=== PATIENT | female | born 1975 | race Caucasian/White ===

== ENCOUNTER 2018-08-19 20:19 | Emergency (ER) | payer MEDICAID, SELFPAY ==
[2018-08-19 20:25] VITALS: BP 124/70; PULSE 68; RESP 20; TEMP 36.8; O2SAT 100
--- NOTE | 2018-08-19 20:33 | W.ED.GENAD ---
Discharge Plan Disposition Patient Disposition: HOME Condition: Fair Discharge Details Chief Complaint: RashLesion Clinical Impression: Cellulitis of finger of right hand Primary Care Provider: Mariya Calderón ED Provider: Ember Mackenzie Home Meds and New Rx's Prescriptions: New sulfamethoxazole-trimethoprim [Bactrim DS] 800-160 mg tablet 1 tab PO BID Qty: 12 RF: 0 Continue acetaminophen [Acetaminophen Extra Strength] 500 MG tablet 1,000 mg PO Q6H PRN RF: 0 albuterol sulfate [Ventolin HFA] 8 GM HFA aerosol inhaler 2 puff Inhalation BID PRNQty: 1 RF: 1 fluticasone [Flovent HFA] 12 GM HFA aerosol inhaler 2 puff Inhalation BID Qty: 1 RF: 4 ranitidine HCl [Zantac Maximum Strength] 150 MG tablet 150 mg PO BID PRNQty: 60 RF: 0 betamethasone, augmented 50 GM cream 1 zachary Topical DAILY PRNQty: 50 RF: 1 amitriptyline 25 MG tablet 25 mg PO HS Qty: 90 RF: 3 fexofenadine [Sravanthi Allergy] 180 MG tablet 180 mg PO DAILY PRN0 Days Qty: 30 RF: 1 pregabalin [Lyrica] 25 MG capsule 25 mg PO BID PRNRF: 0 cfpyhqk-bnamvwspckaop-pgfwrbim [Excedrin Migraine] 1 EACH tablet 2 tab PO PRN PRNRF: 0 acetaminophen 650 MG tablet extended release 650 mg PO Q8H PRN (Reason: Pain) Qty: 20 RF: 0 Discharge Instructions Instructions: Cellulitis (ED) Additional Instructions: Keep open wound clean, dry, covered. Please take antibiotics as prescribed. Even if symptoms improve, please take the entire course. Please follow-up with primary care in the next 5-7 days for reevaluation. If you develop fever/chills, spreading of the redness, inability to move your finger or other new/worsening symptoms please seek care urgently once again Referrals: Mariya Calderón, [employer] [Primary Care Provider] - Medical Decision Making Patient is a 43-year-old hldwe-emdv-fpgrygdk female presenting today with chief concern of wound to the dorsal aspect of the proximal phalanx of the middle digit right hand with streaking with approximately. She reports that she suffered a wound last night. States that initially began as a water blister. 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 However, it was today that she noted the surrounding erythema in the streaking moving proximally. She denies any fevers or chills. Is indicating area of discomfort consistent with where the erythema is. She is got good range of motion of her digits, wrist and elbow. She is afebrile, has been afebrile. Appears nontoxic. Vital signs are within normal limits. At this point, patient will be treated with the Bactrim. I have asked nursing staff to dress the wound. We discussed wound care in depth. Advised that she will need follow-up for reevaluation within the next 5-7 days by primary care. She was given strict return precautions. The digit is only affected on the dorsum of the hand, no circumferential erythema or swelling. Sensation is intact as is extension against resistance with good strength. All of her questions and concerns were addressed and she is in agreement with this plan HPI General Mode of arrival: ambulatory. Date/Time Provider Initiated Documentation: 08/19/18 20:32. Limitations to Documentation: no limitations. Information obtained by: patient. History of Present Illness 43 year old F presents to the emergency department with the chief complaint of erythema right middle finger, described as moderate, with intensity rated at 9. Quality is described as stabbing, and is localized to the right and upper extremity. Patient proximal (to the right wrist along dorsal aspect). Patient started experiencing this day(s) (1) and it has been constant. No relieving factors improve symptom(s), No exacerbating factors reported . Patient notes rash; denies chest pain, cough, fever/chills and shortness of breath. Patient did receive the following treatments prior to arrival, none Related Data Home Medications Medication Instructions Recorded Confirmed acetaminophen [Acetaminophen Extra 1,000 mg PO Q6H PRN tab-cap 04/04/15 08/19/18 Strength] pregabalin [Lyrica] 25 mg PO BID PRN 05/07/15 08/19/18 albuterol sulfate [Ventolin HFA] 2 puff INHALATION BID PRN #1 07/03/15 08/19/18 inhaler fluticasone [Flovent HFA] 2 puff INHALATION BID #1 inhaler 07/03/15 08/19/18 whnhprr-fvsinwjbenrnq-rpermbge 2 tab PO PRN PRN 01/30/16 08/19/18 [Excedrin Migraine] ranitidine HCl [Zantac Maximum 150 mg PO BID PRN #60 tab 08/19/16 08/19/18 Strength] acetaminophen 650 mg PO Q8H PRN #20 tablet.er 03/17/17 08/19/18 betamethasone, augmented 1 zachary TOPICAL DAILY PRN #50 g 04/07/17 08/19/18 amitriptyline 25 mg PO HS #90 tab-cap 04/14/17 08/19/18 fexofenadine [Sravanthi Allergy] 180 mg PO DAILY PRN 0 Days #30 05/26/17 08/19/18 tab-cap sulfamethoxazole-trimethoprim 1 tab PO BID #12 tab 08/19/18 [Bactrim DS] Previous Rx's Medication Instructions Recorded acetaminophen 650 mg PO Q8H PRN #20 tablet.er 03/17/17 sulfamethoxazole-trimethoprim 1 tab PO BID #12 tab 08/19/18 [Bactrim DS] Allergies Allergy/AdvReac Type Severity Reaction Status Date / Time naproxen Allergy Severe anaphylaxis Unverified 08/19/18 20:30 latex Allergy itchy, Unverified 08/19/18 20:30 swells neomycin [Neomycin] Allergy allergy Unverified 08/19/18 20:30 testing codeine phosphate AdvReac Mild Nausea and Unverified 08/19/18 20:30 [From Tylenol-Codeine #3] headache gabapentin AdvReac Unverified 08/19/18 20:30 ibuprofen AdvReac GI Unverified 08/19/18 20:30 General Stated Complaint: RashLesion ALYSHA: 4 Review of Systems Constitutional Reports as per HPI Cardiovascular Reports as per HPI Respiratory Reports as per HPI Musculoskeletal Reports as per HPI, Reports joint swelling (to the right middle finger, proximal phalanx), Denies numbness and Denies tingling Integumentary/Breasts Reports as per HPI, Reports erythema and Reports wounds Neurologic Reports as per HPI, Denies numbness and Denies tingling PFSH Family History Mother Rheumatoid aortitis Mental disorder Father Heart disease Mental disorder Sister Mental disorder Primary fibromyalgia syndrome Asthma Maternal Grandmother Personal history of malignant neoplasm Sister Diabetes Brother Heart disease Medical History Cervical cancer, 19[address] Dr[address] Avila D&C, 12/2007 (miscarriage) Ectopic Preg, 04/2001 Endometriosis Social History Smoking/Tobacco Use Status: Current every day Surgical History section Colonoscopy - MAC Endoscopy , Ectopic Tonsillectomy (05/03/13) Tubal Ligation, Laparoscopic flexible laryngoscopy Exam Const General: cooperative, healthy appearing, comfortable, no acute distress, well developed and well groomed Nutritional Appearance: average body habitus and well nourished Orientation: alert and awake Resp Effort & Inspection: normal respiratory effort, able to speak in complete sentences and no respiratory distress Auscultation: clear to auscultation bilaterally, no rales, no rhonchi and no wheezes Cardio Rate: regular rate Rhythm: regular rhythm Heart Sounds: S1 normal and S2 normal Skin Wounds: wounds noted (patient has a circular 5mm area consistent with blister to the dorsal aspect of the proximal phalanx of the middle finger right hand. Serosanguineous fluid is weeping from this area. Appears to be open wound. No purulent discharge. 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 equal to the contralateral side) Sensory Exam: no sensory deficits noted Extrem Right upper extremity: full ROM, normal capillary refill and no joint enlargement (patient has some mild swelling around the proximal phalanx); abnormal to inspection (as above) and no cyanosis Psych Appearance: grossly normal and well kempt Mental Status: mental status grossly normal Speech and Movement: speech and movement normal Course Vital Signs Temperature 36.8 C 08/19/18 20:25 Pulse 68 08/19/18 20:25 Respiratory Rate 20 08/19/18 20:25 Blood Pressure 124/70 08/19/18 20:25 Pulse Oximetry 100 08/19/18 20:25 Temperature 36.8 C 08/19/18 20:25 Temperature Source Temporal Artery Scan 08/19/18 20:25 Pulse 68 08/19/18 20:25 Respiratory Rate 20 08/19/18 20:25 Respiratory Effort Non-Labored 08/19/18 20:25 Blood Pressure 124/70 08/19/18 20:25 Blood Pressure Position Supine 08/19/18 20:25 Pulse Oximetry 100 08/19/18 20:25 Oxygen Delivery Method Room Air 08/19/18 20:25 Oxygen Flow Rate 0 08/19/18 20:25 Pain Level 9 08/19/18 20:25
[2018-08-19] MEDS: Sulfameth/Trimeth DS TAB 1 TAB PO ×2 (21:10)
--- NOTE | 2018-08-19 22:03 | ED.GENADUL_ITS ---
Discharge Plan Disposition Patient Disposition: HOME Condition: Fair Discharge Details Chief Complaint: RashLesion Clinical Impression: Cellulitis of finger of right hand Primary Care Provider: Mariya Calderón ED Provider: Ember Mackenzie Home Meds and New Rx's Prescriptions: New sulfamethoxazole-trimethoprim [Bactrim DS] 800-160 mg tablet 1 tab PO BID Qty: 12 RF: 0 Continue acetaminophen [Acetaminophen Extra Strength] 500 MG tablet 1,000 mg PO Q6H PRN RF: 0 albuterol sulfate [Ventolin HFA] 8 GM HFA aerosol inhaler 2 puff Inhalation BID PRNQty: 1 RF: 1 fluticasone [Flovent HFA] 12 GM HFA aerosol inhaler 2 puff Inhalation BID Qty: 1 RF: 4 ranitidine HCl [Zantac Maximum Strength] 150 MG tablet 150 mg PO BID PRNQty: 60 RF: 0 betamethasone, augmented 50 GM cream 1 zachary Topical DAILY PRNQty: 50 RF: 1 amitriptyline 25 MG tablet 25 mg PO HS Qty: 90 RF: 3 fexofenadine [Sravanthi Allergy] 180 MG tablet 180 mg PO DAILY PRN0 Days Qty: 30 RF: 1 pregabalin [Lyrica] 25 MG capsule 25 mg PO BID PRNRF: 0 atgwxjo-vmkhoxilmwbit-ahygxcet [Excedrin Migraine] 1 EACH tablet 2 tab PO PRN PRNRF: 0 acetaminophen 650 MG tablet extended release 650 mg PO Q8H PRN (Reason: Pain) Qty: 20 RF: 0 Discharge Instructions Instructions: Cellulitis (ED) Additional Instructions: Keep open wound clean, dry, covered. Please take antibiotics as prescribed. Even if symptoms improve, please take the entire course. Please follow-up with primary care in the next 5-7 days for reevaluation. If you develop fever/chills , spreading of the redness, inability to move your finger or other new/ worsening symptoms please seek care urgently once again Referrals: Mariya Calderón, [employer] [Primary Care Provider] - Medical Decision Making Patient is a 43-year-old klihz-lyhq-mgmaoitx female presenting today with chief concern of wound to the dorsal aspect of the proximal phalanx of the middle digit right hand with streaking with approximately. She reports that she suffered a wound last night. States that initially began as a water blister. 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 However, it was today that she noted the surrounding erythema in the streaking moving proximally. She denies any fevers or chills. Is indicating area of discomfort consistent with where the erythema is. She is got good range of motion of her digits, wrist and elbow. She is afebrile, has been afebrile. Appears nontoxic. Vital signs are within normal limits. At this point, patient will be treated with the Bactrim. I have asked nursing staff to dress the wound. We discussed wound care in depth. Advised that she will need follow-up for reevaluation within the next 5-7 days by primary care. She was given strict return precautions. The digit is only affected on the dorsum of the hand, no circumferential erythema or swelling. Sensation is intact as is extension against resistance with good strength. All of her questions and concerns were addressed and she is in agreement with this plan HPI General Mode of arrival: ambulatory . Date/Time Provider Initiated Documentation: 08/19/18 20:32 . Limitations to Documentation: no limitations . Information obtained by: patient . History of Present Illness 43 year old F presents to the emergency department with the chief complaint of erythema right middle finger, described as moderate, with intensity rated at 9. Quality is described as stabbing, and is localized to the right and upper extremity. Patient proximal (to the right wrist along dorsal aspect). Patient started experiencing this day(s) (1) and it has been constant. No relieving factors improve symptom(s), No exacerbating factors reported . Patient notes rash; denies chest pain, cough, fever/chills and shortness of breath. Patient did receive the following treatments prior to arrival, none Related Data Home Medications Medication Instructions Recorded Confirmed acetaminophen [Acetaminophen Extra 1,000 mg PO Q6H PRN tab-cap 04/04/15 Strength] pregabalin [Lyrica] 25 mg PO BID PRN 05/07/15 08/19/18 albuterol sulfate [Ventolin HFA] 2 puff INHALATION BID PRN #1 07/03/15 08/19/18 inhaler fluticasone [Flovent HFA] 2 puff INHALATION BID #1 inhaler 07/03/15 08/19/18 ihyxbml-bgbougqwiyohj-atbqcjqk 2 tab PO PRN PRN 01/30/16 08/19/18 [Excedrin Migraine] ranitidine HCl [Zantac Maximum 150 mg PO BID PRN #60 tab 08/19/16 08/19/18 Strength] acetaminophen 650 mg PO Q8H PRN #20 tablet.er 03/17/17 08/19/18 betamethasone, augmented 1 zachary TOPICAL DAILY PRN #50 g 04/07/17 08/19/18 amitriptyline 25 mg PO HS #90 tab-cap 04/14/17 08/19/18 fexofenadine [Sravanthi Allergy] 180 mg PO DAILY PRN 0 Days #30 05/26/17 08/19/18 tab-cap sulfamethoxazole-trimethoprim 1 tab PO BID #12 tab 08/19/18 [Bactrim DS] Previous Rx's Medication Instructions Recorded acetaminophen 650 mg PO Q8H PRN #20 tablet.er 03/17/17 sulfamethoxazole-trimethoprim 1 tab PO BID #12 tab 08/19/18 [Bactrim DS] Allergies Allergy/AdvReac Type Severity Reaction Status Date / Time naproxen Allergy Severe anaphylaxis Unverified 08/19/18 20:30 latex Allergy itchy, Unverified 08/19/18 20:30 swells neomycin [Neomycin] Allergy allergy Unverified 08/19/18 20:30 testing codeine phosphate AdvReac Mild Nausea and Unverified 08/19/18 20:30 [From Tylenol-Codeine #3] headache gabapentin AdvReac Unverified 08/19/18 20:30 ibuprofen AdvReac GI Unverified 08/19/18 20:30 General Stated Complaint: RashLesion ALYSHA: 4 Review of Systems Constitutional Reports as per HPI Cardiovascular Reports as per HPI Respiratory Reports as per HPI Musculoskeletal Reports as per HPI, Reports joint swelling (to the right middle finger, proximal phalanx), Denies numbness and Denies tingling Integumentary/Breasts Reports as per HPI, Reports erythema and Reports wounds Neurologic Reports as per HPI, Denies numbness and Denies tingling PFSH Family History Mother Rheumatoid aortitis Mental disorder Father Heart disease Mental disorder Sister Mental disorder Primary fibromyalgia syndrome Asthma Maternal Grandmother Personal history of malignant neoplasm Sister Diabetes Brother Heart disease Medical History Cervical cancer, 19yo Dr[address] Avila D&C, 12/2007 (miscarriage) Ectopic Preg, 04/2001 Endometriosis Social History Smoking/Tobacco Use Status: Current every day Surgical History section Colonoscopy - MAC Endoscopy , Ectopic Tonsillectomy (05/03/13) Tubal Ligation, Laparoscopic flexible laryngoscopy Exam Const General: cooperative, healthy appearing, comfortable, no acute distress, well developed and well groomed Nutritional Appearance: average body habitus and well nourished Orientation: alert and awake Resp Effort & Inspection: normal respiratory effort, able to speak in complete sentences and no respiratory distress Auscultation: clear to auscultation bilaterally, no rales, no rhonchi and no wheezes Cardio Rate: regular rate Rhythm: regular rhythm Heart Sounds: S1 normal and S2 normal Skin Wounds: wounds noted (patient has a circular 5mm area consistent with blister to the dorsal aspect of the proximal phalanx of the middle finger right hand. Serosanguineous fluid is weeping from this area. Appears to be open wound. No purulent discharge. Patient has a 2 cm in thickness streak in moving proximally from) Neuro General: alert and awake Cognition: normal cognition Speech: speech normal Gait: normal gait Motor: muscle tone normal throughout (safe expert strength equal to the contralateral side) Sensory Exam: no sensory deficits noted Extrem Right upper extremity: full ROM, normal capillary refill and no joint enlargement (patient has some mild swelling around the proximal phalanx); abnormal to inspection (as above) and no cyanosis Psych Appearance: grossly normal and well kempt Mental Status: mental status grossly normal Speech and Movement: speech and movement normal Course Vital Signs Temperature 36.8 C 08/19/18 20:25 Pulse 68 08/19/18 20:25 Respiratory Rate 20 08/19/18 20:25 Blood Pressure 124/70 08/19/18 20:25 Pulse Oximetry 100 08/19/18 20:25 Temperature 36.8 C 08/19/18 20:25 Temperature Source Temporal Artery Scan 08/19/18 20:25 Pulse 68 08/19/18 20:25 Respiratory Rate 20 08/19/18 20:25 Respiratory Effort Non-Labored 08/19/18 20:25 Blood Pressure 124/70 08/19/18 20:25 Blood Pressure Position Supine 08/19/18 20:25 Pulse Oximetry 100 08/19/18 20:25 Oxygen Delivery Method Room Air 08/19/18 20:25 Oxygen Flow Rate 0 08/19/18 20:25 Pain Level 9 08/19/18 20:25
[2018-08-20 05:43] VITALS: BP 124/70; PULSE 68; RESP 20; TEMP 36.8; O2SAT 100
== END 2018-08-19 21:16 | disposition home or self-care (01) ==
LOC: ER 21:44
PROVIDERS: Emergency Provider Physician Assistant; PCP Nurse Practitioner
DX: L03.011 Cellulitis of right finger (principal); L03.021 Acute lymphangitis of right finger; S60.422A Blister (nonthermal) of right middle finger, initial encounter; X58.XXXA Exposure to other specified factors, initial encounter
CPT/HCPCS: 99283

== ENCOUNTER 2018-08-20 13:42 | Outpatient (REF) | payer MEDICAID, SELFPAY | END 2018-08-20 14:02 | LOC: LBN 13:42 | PROVIDERS: PCP Nurse Practitioner; Visit Provider Nurse Practitioner | DX: L02.511 Cutaneous abscess of right hand (principal) | CPT/HCPCS: 87077; 87070 ==

== ENCOUNTER 2018-10-12 14:49 | Outpatient (REF) | payer MEDICAID, SELFPAY | END 2018-10-12 15:09 | LOC: LBN 14:49 | PROVIDERS: PCP Nurse Practitioner; Visit Provider Nurse Practitioner Adult Health | DX: J02.9 Acute pharyngitis, unspecified (principal) | CPT/HCPCS: 87077; 87070 ==

== ENCOUNTER 2018-11-09 09:50 | Outpatient (CLI) | payer MEDICAID, SELFPAY ==
--- NOTE | 2018-11-09 09:45 | DI.RAD_ITS ---
SYMPTOM/DIAGNOSIS: CHRONIC COUGH, R05 PA AND LATERAL CHEST: Comparison is made with 30 January 2016. The heart size is normal. The lungs are well inflated and clear. No infiltrate or effusion seen. IMPRESSION: Negative chest x-ray
[2018-11-09 10:11] LABS: Abs Immature Grans 0.02 k/cumm (0.0-0.09); Absolute Basophil Count 0.08 k/cumm (0.0-0.2); Absolute Eosinophil Count 0.35 k/cumm (0.0-0.7); Absolute Neutrophil Count 5.63 k/cumm (1.2-6.7); Basophils % 0.7; Eosinophils % 3.3; HCT 43.5 % (36.0-46.0); HGB 13.8 g/dL (12.0-15.5); Immature Grans % 0.2; Lymphocytes % 37.5; Mean Corp. HGB Concentration 31.7 g/dL (32.0-36.0); Mean Corpuscular Hemoglobin 29.6 pg (27.0-33.0); Mean Corpuscular Volume 93.1 fL (80-95); Monocytes % 5.6; Neutrophils % 52.7; Platelet Count 327 x1000/uL (130-400); RBC 4.67 m/cumm (4.00-5.20); RBC Distribution Width 15.3 % (11.7-14.6); White Blood Cell Count 10.68 k/cumm (4.4-10.8)
[2018-11-09 10:25] LABS: Mono Screening Negative (Negative)
[2018-11-09 13:16] LABS: ALT 18 U/L (12-78); AST 14 U/L (15-37); Albumin 3.3 g/dL (3.4-5.0); Alkaline Phosphatase 101 U/L (46-116); Anion Gap 9.8 mmol/L (3-11); BUN 17 mg/dL (7-18); Bilirubin, Total 0.2 mg/dL (0.2-1.0); CO2 26.2 mmol/L (21.0-32.0); CREATININE 0.92 mg/dL (0.55-1.02); Calcium 8.6 mg/dL (8.5-10.1); Chloride 105 mmol/L (98-107); Glucose 125 mg/dL (70-100); Potassium 4.2 mmol/L (3.5-5.1); Sodium 141 mmol/L (136-145); Total Protein 7.3 g/dL (6.4-8.2)
== END 2018-11-09 10:10 ==
PROVIDERS: PCP Nurse Practitioner; Visit Provider Nurse Practitioner Adult Health
DX: R05 Cough (principal); R53.83 Other fatigue; F17.200 Nicotine dependence, unspecified, uncomplicated; J45.901 Unspecified asthma with (acute) exacerbation
CPT/HCPCS: 36415; 80053; 71046; 85025; 86308

== ENCOUNTER 2019-11-02 17:17 | Outpatient (REF) | payer MEDICAID, SELFPAY ==
--- NOTE | 2019-11-02 15:45 | PAPFT_PTH ---
PATIENT: Carmen Ngo LOC: [facility] U#:[id number] AGE/SX: 44/F ROOM: RE11/02/[address]: Armaan Gonzales MD : 1975 BED: DIS: 11/02/2019 SPEC #: [id number] RECD: 11/02/19 18:04 STATUS: ESTEFANIA REArnoldo #: [id number] MARIANELA: 11/02/19 15:[address]: Armaan Gonzales DEPT: [facility] Cytology RECD BY: Kayla Varela ENTERED: 11/02/19 18:04 SP TYPE: PAPFT OTHR DR: Adriana Wylie APRN Tissues: 1 - CX/ENDOCX FOR PAP SMEARS Procedures: PAP THIN PREP/UVM Screening HPV DNA PROBE Comments: [id number]
== END 2019-11-02 17:37 ==
LOC: LBN 17:17
PROVIDERS: PCP Nurse Practitioner Adult Health; Visit Provider Obstetrics & Gynecology
DX: Z12.4 Encounter for screening for malignant neoplasm of cervix (principal); Z11.51 Encounter for screening for human papillomavirus (HPV)
CPT/HCPCS: 88142; 87624

== ENCOUNTER 2019-11-05 01:32 | Outpatient (CLI) | payer MEDICAID, SELFPAY ==
--- NOTE | 2019-11-05 12:34 | DI.US_ITS ---
EXAM: US PELVIS TRANSVAGINAL CLINICAL HISTORY: dysmenorrhea N94.6 TECHNIQUE: Ultrasound performed using standard protocol. COMPARISON: ABDOMEN ULTRASOUND (P) from 02/02/2016 FINDINGS: Pelvic ultrasound was performed transabdominally and transvaginally. Please see the accompanying israel a sheet for measurements of the pelvic structures. There are few small nabothian cysts noted. The o varies have a normal follicular appearance. No free fluid identified in the cul-de-sac. Endometrial stripe is about 8 millimeters thick and homogeneous. Myometrium is unremarkable. Limited scanning of the kidneys is unremarkable IMPRESSION: Negative pelvic ultrasound
== END 2019-11-05 01:52 ==
PROVIDERS: PCP Nurse Practitioner Adult Health; Visit Provider Obstetrics & Gynecology
DX: N94.6 Dysmenorrhea, unspecified (principal)
CPT/HCPCS: 76830; 76856

== ENCOUNTER 2023-02-17 09:12 | Outpatient (REF) | payer MEDICAID, SELFPAY ==
--- NOTE | 2023-02-17 08:53 | SKI_PTH ---
PATIENT: Carmen Ngo LOC: [facility] U#:[id number] AGE/SX: 47/F ROOM: RE02/17/[address]: Betty Lauren MD : 1975 BED: DIS: 02/17/2023 SPEC #: [id number] RECD: 02/17/23 13:01 STATUS: ESTEFANIA REArnoldo #: [id number] MARIANELA: 02/17/23 08:[address]: Betty Lauren DEPT: Surgical Specimen RECD BY: Kayla Varela ENTERED: 02/17/23 13:02 SP TYPE: AUDELIA PETERSEN DR: Adriana Wylie APRN Tissues: 1 - SKIN BIOPSY(SHAVE/PUNCH) 2 - SKIN BIOPSY(SHAVE/PUNCH) Procedures: SKIN LEVEL 4 Comments: [id number]
== END 2023-02-17 09:13 | disposition home or self-care (01) ==
LOC: LBN 09:12
PROVIDERS: PCP Nurse Practitioner Adult Health; Visit Provider Surgery
DX: L30.8 Other specified dermatitis (principal); R23.8 Other skin changes
CPT/HCPCS: 88305

== ENCOUNTER 2023-03-04 03:55 | Outpatient (CLI) | payer MEDICAID, SELFPAY ==
[2023-03-04 12:21] LABS: Abs Immature Grans 0.03 10^3/uL (0.0-0.06); Absolute Basophil Count 0.08 10^3/uL (0.0-0.2); Absolute Eosinophil Count 0.38 10^3/uL (0.0-0.7); Absolute Lymphocyte Count 2.63 10^3/uL (1.2-3.4); Absolute Monocyte Count 0.54 10^3/uL (0.1-0.8); Basophils % 0.9; Eosinophils % 4.1; HCT 45.3 % (36.0-46.0); HGB 14.2 g/dL (11.2-15.7); Immature Grans % 0.3; Lymphocytes % 28.1; MCHC 31.3 % (32.0-36.0); MCV 92 fL (80-95); MPV 9.2 fL (8.0-11.0); Monocytes % 5.8; Neutrophils % 60.8; Platelet Count 345 10^3/uL (130-400); RDW 15.9 % (11.7-14.6); RDW-SD 53.9 fL; WBC 9.36 10^3/uL (4.4-10.8)
[2023-03-04 12:23] LABS: ESR 32 mm/hr (0-20)
[2023-03-04 12:45] LABS: ALT 24 U/L (14-59); AST 16 U/L (15-37); Albumin 3.3 g/dL (3.4-5.0); Alkaline Phosphatase 82 U/L (46-116); Anion Gap 8.8 mmol/L (3-11); BUN 12 mg/dL (7-18); Bilirubin, Total 0.7 mg/dL (0.2-1.0); CO2 26.2 mmol/L (21.0-32.0); CREATININE 0.9 mg/dL (0.55-1.02); Calcium 8.5 mg/dL (8.5-10.1); Calculated LDL 89 mg/dL (<100); Chloride 104 mmol/L (98-107); Cholesterol 185 mg/dL (<200); Estimated GFR 80.34 (mL/min/1.73m2); Glucose 129 mg/dL (74-106); HDL Cholesterol 35 mg/dL (40-60); Potassium 3.8 mmol/L (3.5-5.1); Sodium 139 mmol/L (136-145); TSH (W/Ref FT4) 1.68 uIU/mL (0.36-3.74); Total Protein 7.3 g/dL (6.4-8.2); Triglyceride 309 mg/dL (<150)
[2023-03-04 22:22] LABS: Rheumatoid Factor <8.6 IU/mL (<12.0)
[2023-03-06 13:21] LABS: Lab Add On Test DONE
[2023-03-06 13:34] LABS: Hemoglobin A1C 6.3 % (<5.7)
== END 2023-03-04 03:56 | disposition home or self-care (01) ==
LOC: LOS 03:55
PROVIDERS: PCP Nurse Practitioner Adult Health; Visit Provider Nurse Practitioner Adult Health
DX: L30.8 Other specified dermatitis (principal); Z13.1 Encounter for screening for diabetes mellitus; Z13.220 Encounter for screening for lipoid disorders; Z83.2 Family history of diseases of the blood and blood-forming organs and certain disorders involving the immune mechanism; R73.01 Impaired fasting glucose
CPT/HCPCS: 36415; 80053; 80061; 85652; 83036; 84443; 85025; 86431

== ENCOUNTER → 2024-04-01 00:59 | Outpatient (CLI) | payer MEDICAID, SELFPAY ==
--- NOTE | 2024-04-01 08:00 | DI.RAD_ITS ---
Exam(s) XR LUMBAR SPINE COMPLETE EXAM: XR LUMBAR SPINE COMPLETE CLINICAL HISTORY: back pain; ?acute abnormality,M54.50. TECHNIQUE: 2D digital imaging was performed of the lumbar spine. Five images were obtained. AP, la teral, right oblique, left oblique and L5-S1 spot views were obtained. COMPARISON: CR THORACIC SPINE from 12/08/2013 FINDINGS: BONES: No fracture or destructive lesion. Small endplate osteophytes are seen at L3-4 and L4-L5. Mild degenerative changes are seen at the facets at L5-S1. DISKS: Intervertebral disc spaces are maintained. ALIGNMENT: Lumbar spinal alignment is within normal limits. No spondylolysis or spondylolisthesis. SOFT TISSUE: Normal. IMPRESSION: 1. Mild degenerative changes seen in the lumbar spine. 2. No acute fracture or subluxation. DATA REPOSITORY: RADIATION DOSE DELIVERED:
--- NOTE | 2024-04-01 08:00 | DI.RAD_ITS ---
Exam(s) XR CERVICAL SPINE COMP 4-5V EXAM: XR CERVICAL SPINE COMP 4-5V CLINICAL HISTORY: remote 2014 injury; interval F/U; bony changes,NECK PAIN,M54.2. TECHNIQUE: 2D digital imaging was performed. Six images were obtained. AP, odontoid, lateral and zeynep ateral oblique images were obtained. COMPARISON: CR CERV SP.WITH OBL OR FLEX/EXT from 12/08/2013 FINDINGS: The odontoid is intact. The lateral masses are well aligned. There is normal alignment of the cervi jann spine. There are small endplate osteophytes seen at C5-6 and C6-C7. No acute fracture or subluxat ion is present. No significant neural foraminal stenosis is present. The cervical thoracic junction is well maintained. The prevertebral soft tissues are unremarkable. Lung apices are clear. IMPRESSION: Mild cervical spondylosis. DATA REPOSITORY: RADIATION DOSE DELIVERED:
== END ==
PROVIDERS: PCP Nurse Practitioner Adult Health; Visit Provider Nurse Practitioner Adult Health
DX: M54.2 Cervicalgia (principal); M54.50 Low back pain, unspecified
CPT/HCPCS: 72050; 72110

== ENCOUNTER → 2024-04-30 00:10 | Outpatient (CLI) | payer MEDICAID, SELFPAY ==
--- NOTE | 2024-04-30 06:30 | DI.MRI_ITS ---
Exam(s) MR LUMBAR SPINE WO EXAM: MR LUMBAR SPINE WO CLINICAL HISTORY: 10 yr f/u,lumbar radiculopathy,spinal stenosis,spondylosis. TECHNIQUE: Multiplanar multisequence MRI of the Lumbar spine was performed. COMPARISON: CR XR LUMBAR SPINE COMPLETE from 04/01/2024 FINDINGS: Bones: The last intervertebral disc space is designated the L5/S1 level for the numbering purpose of this examination. The vertebral body heights are well maintained. Alignment is satisfactory. The si gnal characteristics are unremarkable. Cord: The conus tip ends at the L1 level. It is of normal size and signal intensity. T12-L1: No disc herniations or bulges are present. No central spinal canal or neural foraminal stenos is. L1-2: No disc herniations or bulges are present. No central spinal canal or neural foraminal stenosis . L2-3: No disc herniations or bulges are present. No central spinal canal or neural foraminal stenosis . L3-4: No disc herniations or bulges are present. No central spinal canal or neural foraminal stenosis .Degenerative changes of the facets are seen. L4-5: No disc herniations or bulges are present. No central spinal canal or neural foraminal stenosis .Degenerative changes of the facets are present. L5-S1: No disc herniations or bulges are present. No central spinal canal or neural foraminal stenosi s. Soft tissues: The visualized SI joints and sacrum are well maintained. The paraspinal soft tissues ar e unremarkable. IMPRESSION: Degenerative changes seen in the lumbar spine but no evidence of focal disc herniation, central spina l canal or neural foraminal stenosis. DATA REPOSITORY:
--- NOTE | 2024-04-30 06:30 | DI.MRI_ITS ---
Exam(s) MR CERVICAL SPINE WO EXAM: MR CERVICAL SPINE WO CLINICAL HISTORY: 10 yr f/u,spondylosis,spinal stenosis,headache,pain rt arm TECHNIQUE: Multiplanar multisequence MRI of the cervical spine was performed without intravenous con trast. COMPARISON: No exams were available for comparison FINDINGS: BONES: Vertebral body heights are maintained. Intervertebral disc spaces are normal. Alignment is nor mal. Bone marrow signal intensity is within normal limits. CERVICAL CORD: Craniovertebral junction is unremarkable. The cervical cord is normal size and signal intensity. SOFT TISSUES: Unremarkable. C2-3: No disc herniation or bulge is identified. No significant central spinal canal or neural forami nal stenosis. C3-4: No disc herniation or bulge is identified. No significant central spinal canal or neural forami nal stenosis C4-5: No disc herniation or bulge is identified. No significant central spinal canal or neural forami nal stenosis C5-6: There is mild prominence of the osteophyte disc complex. No significant central spinal canal s tenosis is seen. There is mild bilateral neural foraminal narrowing. C6-7: There is mild prominence of the osteophyte disc complex. No significant central spinal canal o r neural foraminal stenosis C7-T1: No disc herniation or bulge is identified. No significant central spinal canal or neural michelle inal stenosis IMPRESSION: Degenerative changes at C5-C6 resulting in mild bilateral neural foraminal narrowing. DATA REPOSITORY:
== END ==
PROVIDERS: PCP Nurse Practitioner Adult Health; Visit Provider Nurse Practitioner Adult Health
DX: M47.812 Spondylosis without myelopathy or radiculopathy, cervical region (principal); M48.02 Spinal stenosis, cervical region; M54.16 Radiculopathy, lumbar region; R51.9 Headache, unspecified; M79.601 Pain in right arm; G89.29 Other chronic pain
CPT/HCPCS: 72141; 72148

== ENCOUNTER 2024-07-07 02:21 | Outpatient (CLI) | payer MEDICAID, SELFPAY ==
[2024-07-07 12:41] LABS: HCT 44.8 % (36.0-46.0); HGB 14.9 g/dL (11.2-15.7)
[2024-07-07 13:54] LABS: Ferritin 24 ng/mL (8-252); Folate 3.7 ng/mL (8.6-20.0); Vitamin B12 199 pg/mL (193-986)
== END 2024-07-07 02:22 | disposition home or self-care (01) ==
LOC: LBO 02:22
PROVIDERS: PCP Nurse Practitioner Adult Health; Referring Provider Nurse Practitioner Adult Health; Visit Provider Nurse Practitioner Adult Health
DX: Z83.79 Family history of other diseases of the digestive system (principal)
CPT/HCPCS: 36415; 82607; 82728; 82746; 85014; 85018

== ENCOUNTER 2024-07-08 14:47 | Outpatient (REF) | payer MEDICAID, SELFPAY | END 2024-07-08 14:48 | disposition home or self-care (01) | LOC: LBN 14:47 | PROVIDERS: PCP Nurse Practitioner Adult Health; Visit Provider Nurse Practitioner Adult Health | DX: Z83.79 Family history of other diseases of the digestive system (principal) | CPT/HCPCS: 82710 ==

== ENCOUNTER 2024-07-19 01:30 | Outpatient (CLI) | payer MEDICAID, SELFPAY ==
--- NOTE | 2024-07-19 10:33 | DI.RAD_ITS ---
Exam(s) XR HIP LT COMPLETE AP PELVIS EXAM: XR HIP LT COMPLETE AP PELVIS CLINICAL HISTORY: ? abnormality. TECHNIQUE: 2D digital imaging was performed of the left hip. Two views were obtained. AP pelvis an d lateral left hip views were obtained. COMPARISON: CR ABDOMEN 2 VIEW FLAT, UPRIGHT from 02/27/2012 FINDINGS: BONES: No acute fracture is present. No bony destructive lesion is seen. No suspicious lytic or scler otic lesions are seen. JOINTS: No dislocation present. The sacroiliac joints and symphysis pubis are unremarkable. SOFT TISSUE: Normal. IMPRESSION: The left hip joint space is well maintained. No acute abnormalities identified. DATA REPOSITORY: RADIATION DOSE DELIVERED:
== END 2024-07-19 01:50 ==
LOC: DI 01:30
PROVIDERS: PCP Nurse Practitioner Adult Health; Visit Provider Nurse Practitioner Adult Health
DX: M25.552 Pain in left hip (principal)
CPT/HCPCS: 73502

== ENCOUNTER 2024-08-23 14:08 | Outpatient (CLI) | payer MEDICAID, SELFPAY ==
--- NOTE | 2024-08-23 14:23 | DI.RAD_ITS ---
Exam(s) XR CHEST 2V PA LATERAL EXAM: XR CHEST 2V PA LATERAL CLINICAL HISTORY: ? acute process,expiratory wheezing, hemoptysis, exac of asthma,r06.2 TECHNIQUE: 2D digital imaging was performed. Two views. COMPARISON: CR XR CHEST 2V PA LATERAL from 11/09/2018 FINDINGS: HEART: Normal size. Aorta: Not dilated. PULMONARY VASCULATURE: Normal. MEDIASTINUM: Unremarkable. LUNGS: Clear. PLEURAL SPACE: No pleural effusion or pneumothorax. BONE:Unremarkable for age. SOFT TISSUES: Unremarkable. IMPRESSION: No acute abnormality. DATA REPOSITORY: RADIATION DOSE DELIVERED:
== END 2024-08-23 14:28 ==
LOC: DI 14:09
PROVIDERS: PCP Nurse Practitioner Adult Health; Visit Provider Nurse Practitioner Adult Health
DX: J45.901 Unspecified asthma with (acute) exacerbation
CPT/HCPCS: 71046

== ENCOUNTER 2024-09-10 02:09 | Outpatient (CLI) | payer MEDICAID, SELFPAY ==
[2024-09-10] MEDS: Methacholine 100 MG VIAL IH (15:02)
[2024-09-10] MEDS: Inhaler, Assist Device 1 EACH MC (15:02)
[2024-09-10] MEDS: Albuterol HFA 18 GM 200 PUFF INH IH (15:02)
--- NOTE | 2024-09-18 11:48 | W.PFT ---
Date of service: 09/10/24 Time of Service: 13:02 Pulmonary Function Test Result Indications: Asthma Interpretation Spirometry: No baseline airflow limitation. There was a 27% decrease in FEV1 with administration of 8mg/mL methacholine. Impression Borderline positive methacholine challenge. Clinical Correlation therefore is recommended.
== END 2024-09-10 02:10 | disposition home or self-care (01) ==
LOC: RT 02:09
PROVIDERS: PCP Nurse Practitioner Adult Health; Visit Provider Student in an Organized Health Care Education/Training Program
DX: J45.909 Unspecified asthma, uncomplicated (principal); Z72.0 Tobacco use
CPT/HCPCS: 94060; 94070; J7674

== ENCOUNTER 2024-10-01 00:31 | Outpatient (CLI) | payer MEDICAID, SELFPAY ==
--- NOTE | 2024-10-01 07:30 | DI.MAMMO_ITS ---
Exam(s) MAMMO SCREENING EXAM: MAMMO SCREENING CLINICAL HISTORY: screening, Z12.39 TECHNIQUE: Mammograms were interpreted according to the usual protocol including computer analysis w [employer] CAD system, tomosynthesis and C-view imaging. COMPARISON: No exams were available for comparison. Baseline examination FINDINGS: The breasts are composed of scattered fibroglandular densities, Breast Density category B. No suspicious masses or suspicious microcalcifications are seen. No skin thickening or abnormal axillary lymph nodes are seen. IMPRESSION: BI-RADS Category 1, Negative mammogram Yearly screening mammography is recommended. Breast Density - Category B, scattered fibroglandular densities. A negative radiographic report should not delay biopsy if a dominant or clinically suspicious mass is present. Up to ten percent of cancers are not identified on mammography. A negative report may reinforce clinical impression. Adenosis and dense breasts may obscure an underlying neoplasm. False positive reports average 6 to 10%. Patient will receive a letter notifying them of these results.
== END 2024-10-01 00:51 ==
LOC: DI 00:31
PROVIDERS: PCP Nurse Practitioner Adult Health; Visit Provider Nurse Practitioner Adult Health
DX: Z12.31 Encounter for screening mammogram for malignant neoplasm of breast (principal); R92.323 Mammographic fibroglandular density, bilateral breasts
CPT/HCPCS: 77063; 77067

== ENCOUNTER 2024-11-30 01:50 | Outpatient (CLI) | payer MEDICAID, SELFPAY ==
--- NOTE | 2024-11-30 13:00 | DI.MRI_ITS ---
Exam(s) MR BRAIN WO EXAM: MR BRAIN WO CLINICAL HISTORY: ?MS, diffuse paraeshesias,bilateral hand weakness,chronic headache,r51.9,. TECHNIQUE: Multiplanar multisequence MRI of the brain was performed. CONTRAST MATERIAL: Noncontrast COMPARISON: No exams were available for comparison FINDINGS: VENTRICLES AND EXTRA AXIAL SPACES: Normal in size and morphology for the patient's age. HEMORRHAGE: None. CEREBRAL PARENCHYMA: No focus of restricted diffusion to suggest acute infarct. No space-occupying le rhianna identified. No abnormal high signal foci in the white matter. BRAINSTEM/CEREBELLUM: Normal. CALVARIUM: Normal. VISUALIZED PARANASAL SINUSES/MASTOIDS: Mucous retention cysts in both maxillary sinuses. Orbits: Unremarkable. Pituitary: Not enlarged. Vasculature: Normal flow voids. IMPRESSION: Unremarkable MRI of the brain. DATA REPOSITORY:
== END 2024-11-30 02:10 ==
LOC: DI 01:51
PROVIDERS: PCP Nurse Practitioner Adult Health; Visit Provider Psychiatry & Neurology Neurology
DX: R51.9 Headache, unspecified (principal); G89.29 Other chronic pain; R20.2 Paresthesia of skin
CPT/HCPCS: 70551

== ENCOUNTER 2025-01-21 00:57 | Outpatient (CLI) | payer MEDICAID, SELFPAY ==
[2025-01-21 13:07] LABS: Abs Immature Grans 0.02 10^3/uL (0.0-0.06); Absolute Basophil Count 0.09 10^3/uL (0.0-0.2); Absolute Eosinophil Count 0.28 10^3/uL (0.0-0.7); Absolute Lymphocyte Count 3.07 10^3/uL (1.2-3.4); Absolute Monocyte Count 0.41 10^3/uL (0.1-0.8); Absolute Neutrophil Count 4.86 10^3/uL (1.2-6.7); Eosinophils % 3.2 %; HGB 15.4 g/dL (11.2-15.7); Immature Grans % 0.2 %; Lymphocytes % 35.2 %; MCH 31.1 pg (27.0-33.0); MCHC 32.8 % (32.0-36.0); MCV 95 fL (80-95); MPV 9.1 fL (8.0-11.0); Monocytes % 4.7 %; Neutrophils % 55.7 %; Platelet Count 321 10^3/uL (130-400); RBC 4.95 10^6/uL (3.93-5.22); RDW 14.8 % (11.7-14.6); RDW-SD 51.8 fL; WBC 8.73 10^3/uL (4.4-10.8)
[2025-01-21 13:20] LABS: ESR 23 mm/hr (0-20)
[2025-01-21 13:30] LABS: Bilirubin Negative (Negative); Blood Trace-intact (Negative); Clarity Sl Cloudy (Clear); Glucose Negative (Negative); Ketones Negative (Negative); Leukocyte Esterase Trace (Negative); Nitrite Negative (Negative); Urobilinogen 0.2 mg/dL (Up to 0.2)
[2025-01-21 13:37] LABS: Bacteria Rare HPF (Negative); C & S Indicated? No; Casts Negative LPF (Negative); Crystals Negative HPF (Negative); Epithelial Cells Few HPF (Negative); Mucus Negative (Negative); RBC Negative HPF (0-2); WBC 0-2 HPF (0-5)
[2025-01-21 15:03] LABS: ALT 25 U/L (14-59); AST 16 U/L (15-37); Albumin 3.6 g/dL (3.4-5.0); Alkaline Phosphatase 110 U/L (46-116); Anion Gap 9.1 mmol/L (3-11); BUN 11 mg/dL (7-18); Bilirubin, Total 0.3 mg/dL (0.2-1.0); CO2 28.9 mmol/L (21.0-32.0); CREATININE 0.9 mg/dL (0.55-1.02); Chloride 106 mmol/L (98-107); Estimated GFR 79.35 (mL/min/1.73m2); Folate 4.5 ng/mL (8.6-20.0); Glucose 119 mg/dL (74-106); Potassium 3.9 mmol/L (3.5-5.1); Sodium 144 mmol/L (136-145); Total Protein 7.1 g/dL (6.4-8.2); Vitamin B12 181 pg/mL (193-986)
[2025-01-21 15:11] LABS: C-Reactive Protein 0.91 mg/dL (<or=0.5)
[2025-01-21 22:01] LABS: Rheumatoid Factor <8.6 IU/mL (<12.0)
[2025-01-24 07:54] LABS: Cyclic Citrullinated Peptide <2.5 U/mL (<5.0)
[2025-01-24 11:34] LABS: Sm (Smith) Ab, IgG <8.0 CU (<20.0)
[2025-01-24 11:40] LABS: Ro60 Ab, IgG <7.0 CU (<20.0); SS-A/Ro, IgG <2.3 CU (<20.0); SS-B (La) Ab, IgG <3.3 CU (<20.0); dsDNA Ab, IgG <22.0 IU/mL (<27.0)
[2025-01-24 14:13] LABS: IgA 141 mg/dL (85-499); Interpretation (See Note); Tissue Transglutaminase IgA <4.0 CU (<20.0)
[2025-01-25 11:38] LABS: ANA Interpretation Positive (Negative)
== END 2025-01-21 00:58 | disposition home or self-care (01) ==
PROVIDERS: Absent Provider Nurse Practitioner Adult Health; PCP Nurse Practitioner Adult Health; Referring Provider Nurse Practitioner Adult Health; Visit Provider Nurse Practitioner Adult Health
DX: L56.4 Polymorphous light eruption (principal); L56.8 Other specified acute skin changes due to ultraviolet radiation; H04.123 Dry eye syndrome of bilateral lacrimal glands; R73.01 Impaired fasting glucose; E53.8 Deficiency of other specified B group vitamins
CPT/HCPCS: 36415; 80053; 82784; 83516; 85652; 86200; 81003; 81015; 82607; 82746; 83036; 85025; 86038; 86140; 86225; 86235; 86431

== ENCOUNTER 2025-07-04 03:23 | Outpatient (CLI) | payer MEDICAID, SELFPAY ==
--- NOTE | 2025-07-04 07:00 | DI.US_ITS ---
Exam(s) US SOFT TISSUE EXTREMITY EXAM: US SOFT TISSUE EXTREMITY CLINICAL HISTORY: right plantar foot wound, ? FB,s91.301a. TECHNIQUE: Ultrasound was performed using standard protocol. COMPARISON: US US PELVIS TRANSVAGINAL from 11/05/2019 FINDINGS: CT ultrasound examination was performed of the area of concern on the undersurface of the foot with there is possibly a foreign body. There is a superficial hyperechoic focus at this level. It is difficult to determine if this is just air in the small skin crater at this level or if this represents an actual small foreign body. Recommend follow-up CT if there is high clinical suspicion for foreign body at this level. IMPRESSION: As above. Recommend dedicated CT scan through this region. DATA REPOSITORY:
== END 2025-07-04 03:43 ==
PROVIDERS: Visit Provider Physician Assistant
DX: S90.851A Superficial foreign body, right foot, initial encounter; X58.XXXA Exposure to other specified factors, initial encounter
CPT/HCPCS: 76881

== ENCOUNTER 2025-07-14 04:25 | Outpatient (CLI) | payer MEDICAID, SELFPAY ==
--- NOTE | 2025-07-14 06:30 | DI.CT_ITS ---
Exam(s) CT LOWER EXTREMITY RT WO EXAM: CT LOWER EXTREMITY RT WO CLINICAL HISTORY: ? FB in right foot,S90.851a. TECHNIQUE: Imaging Protocol: Axial computed tomography images with coronal and sagittal reformatted images were created and reviewed. COMPARISON: US US SOFT TISSUE EXTREMITY from 07/04/2025 FINDINGS: Bones: The osseous structures and articular surfaces are intact. Bony alignment is satisfactory. No CT findings are seen to suggest osteomyelitis. There is no evidence of joint space narrowing or cystic degeneration seen. No lytic or sclerotic lesions are identified. Soft Tissues: There is focal thickening of the skin on the plantar surface of the foot between the 3rd and 4th metatarsal heads. (Series 20, image 82). There is no subcutaneous air present. No radiopaque foreign body is identified. There is no radiopaque foreign body seen in the soft tissues of the foot. There is no focal fluid collection to suggest an abscess. IMPRESSION: 1. No radiopaque foreign body is present. 2. Focal thickening of the skin on the plantar surface of the foot between the 3rd and 4th metatarsal heads. Please correlate with the patient's injury site. This may represent focal healing. There is no abscess. 3. No evidence of an acute fracture or dislocation. RADIATION DOSE DELIVERED: 174.97mGy.cm Total DLP 174.97mGy.cm Total DLP DATA REPOSITORY: All CT scans at this facility are submitted to the National Radiology Data Registry (NRDR) Dose Index Registry (DIR) with the [employer] ([employer]). RADIATION OPTIMIZATION: All CT scans at this facility use at least one of these dose optimization techniques: automated exposure control; mA and/or kV adjustment per patient size (includes targeted exams where dose is matched to clinical indication); or iterative reconstruction.
== END 2025-07-14 04:45 ==
LOC: DI 04:25
PROVIDERS: Visit Provider Physician Assistant
DX: S90.851A Superficial foreign body, right foot, initial encounter (principal)
CPT/HCPCS: 73700